=== PATIENT | male | born 1975 | race Caucasian/White ===

== ENCOUNTER 2018-05-03 14:04 | Emergency (ER) | payer BC, OTHER ==
--- NOTE | 2018-05-03 14:46 | ER Document Report ---
ED Medical Screen (RME) - General Chief Complaint: Abdominal Pain Stated Complaint: HIGH ABDOMINAL PAIN/VOMITING BLOOD Time Seen by Provider: 05/03/18 14:42 TRAVEL OUTSIDE OF THE [place] IN LAST 30 DAYS: No - HPI Patient complains to provider of: Abdominal pain with a burning quality Past Medical History Renal/ Medical History: Denies: Hx Peritoneal Dialysis Physical Exam - Vital signs Vitals: Temp Pulse Resp BP Pulse Ox 98.7 F 101 H 18 126/95 H 99 05/03/18 14:10 05/03/18 14:10 05/03/18 14:10 05/03/18 14:10 05/03/18 14:10 - Notes Notes: Market abdominal pain and tenderness Course - Re-evaluation Re-evalutation: 05/03/18 14:45 This 43-year-old man presents for evaluation of a burrowing intense abdominal pain with an episode of hemoptysis 2 days prior. He is not a smoker, does not drink alcohol, does not have any known gastritis in the past or ulcers he does say that he does take a PPI daily. Believes this may be stress related but is uncertain. We will plan to evaluate CMP CBC and administer Pepcid for pain control, pending results of CMP and lipase will consider further diagnostic studies including imaging. - Vital Signs Vital signs: Temp Pulse Resp BP Pulse Ox 98.7 F 101 H 18 126/95 H 99 05/03/18 14:10 05/03/18 14:10 05/03/18 14:10 05/03/18 14:10 05/03/18 14:10 Doctor's Discharge - Discharge Referrals: VINOD YOUNGBLOOD MD [Primary Care Provider] - Follow up as needed
[2018-05-03] MEDS ORDERED: NORMAL SALINE 1000 ML 1,000 ML IV ONE (14:47)
[2018-05-03 15:26] LABS: ABSOLUTE EOSINOPHILS # (AUTO) 0.1 10^3/uL (0.0-0.6); ABSOLUTE LYMPHOCYTES (AUTO) 1.9 10^3/uL (0.5-4.7); ABSOLUTE MONOCYTES (AUTO) 0.8 10^3/uL (0.1-1.4); BASOPHILS % (AUTO) 0.5 % (0-2); EOSINOPHILS % (AUTO) 1.7 % (0-6); HEMOGLOBIN 16.8 g/dL (13.5-17.0); LYMPHOCYTES % (AUTO) 27.4 % (13-45); MEAN CORPUSCULAR HEMOGLOBIN 31.5 pg (27.0-33.4); MEAN CORPUSCULAR HGB CONC 35.1 g/dL (32.0-36.0); MEAN CORPUSCULAR VOLUME 90 fl (80-97); PLATELET COUNT 260 10^3/uL (150-450); RED BLOOD COUNT 5.35 10^6/uL (4.35-5.55); RED CELL DISTRIBUTION WIDTH 13.2 % (11.5-14.0); SEGMENTED NEUTROPHILS % (AUTO) 59.4 % (42-78); TOTAL CELLS COUNTED % (AUTO) 100 %; WHITE BLOOD COUNT 6.8 10^3/uL (4.0-10.5)
[2018-05-03 15:46] LABS: ALANINE AMINOTRANSFERASE 30 U/L (21-72); ALKALINE PHOSPHATASE 70 U/L (38-126); ANION GAP 13 (5-19); ASPARTATE AMINO TRANSFERASE 21 U/L (17-59); BILIRUBIN,DIRECT 0.3 mg/dL (0.0-0.4); BILIRUBIN,TOTAL 0.8 mg/dL (0.2-1.3); BLOOD UREA NITROGEN 10 mg/dL (7-20); CALCIUM 10.2 mg/dL (8.4-10.2); CARBON DIOXIDE 31 mmol/L (22-30); CHLORIDE 100 mmol/L (98-107); GLUCOSE 95 mg/dL (75-110); LIPASE 202.5 U/L (23-300); POTASSIUM 4.5 mmol/L (3.6-5.0); SODIUM 143.8 mmol/L (137-145); TOTAL PROTEIN 8.9 g/dL (6.3-8.2)
[2018-05-03] MEDS: LIDOCAINE 2% VISCOUS SOLN 20 ML UDCUP PO ONE (18:09)
[2018-05-03] MEDS: METOCLOPRAMIDE HCL ORAL SOLN 10 MG/10 ML UDCUP PO ONE (18:10)
[2018-05-03] MEDS: MAG HYDROX/AL HYDROX/SIMETH SUSP 30 ML UDCUP PO ONE (18:10)
[2018-05-03 19:00] VITALS: BP 132/103
--- NOTE | 2018-05-03 22:05 | EKG REPORT ---
SEVERITY:- NORMAL ECG - SINUS RHYTHM : Confirmed by: Vasyl Schreiber 03-May-2018 22:04:35
== END 2018-05-03 19:15 | disposition home or self-care (01) ==
LOC: ER 14:04
DX: K29.70 Gastritis, unspecified, without bleeding (principal); K21.9 Gastro-esophageal reflux disease without esophagitis; R10.12 Left upper quadrant pain; R10.817 Generalized abdominal tenderness; Z79.899 Other long term (current) drug therapy
CPT/HCPCS: 93005; 99284; 36415; 83690; 85025; 80053; 84484; 93010; J3490